=== PATIENT | male | born 1985 | race Caucasian/White ===

== ENCOUNTER 2017-04-29 16:43 | Emergency (ER) | payer SELFPAY ==
[~2017-04-29] VITALS: Ht 167.6 cm; Wt 77.1 kg
--- NOTE | 2017-04-29 17:22 | NUR ---
DR MORSE AT THE BEDSIDE FOR EVAL AND EXAM.
--- NOTE | 2017-04-29 18:21 | NUR ---
Patient discharged to home in stable conditon. Written and verbal after care instructions given. Patient verbalizes understanding of instructions. PT WALKED OUT OF ER W/ STEADY GAIT.
[2017-04-29 18:24] VITALS: BP 120/75
== END 2017-04-29 18:25 | disposition home or self-care (01) ==
LOC: ER 16:44
DX: S09.90XA Unspecified injury of head, initial encounter (principal); M54.40 Lumbago with sciatica, unspecified side; F17.200 Nicotine dependence, unspecified, uncomplicated; R51 Headache; W01.0XXA Fall on same level from slipping, tripping and stumbling without subsequent striking against object, initial encounter; Y93.89 Activity, other specified; Y99.8 Other external cause status; Y92.89 Other specified places as the place of occurrence of the external cause
CPT/HCPCS: 70450; 72100; A4663

== ENCOUNTER 2022-08-31 13:25 | Emergency (ER) | payer OTHER ==
[~2022-08-31] VITALS: Ht 167.6 cm; Wt 55.8 kg
--- NOTE | 2022-08-31 13:59 | NUR ---
[email or web address], medical screening exam in progress
--- NOTE | 2022-08-31 14:27 | NUR ---
Patient ambulated to ER bed 2A. Patient is still for x-rays. Nursing SBAR given to JOSELYN Friend.
--- NOTE | 2022-08-31 15:32 | NUR ---
Patient discharged to home in stable condition. Written and verbal after care instructions given. Patient verbalizes understanding of instructions. Stressed follow up or return to ER for worsening s/s.
[2022-08-31 15:33] VITALS: BP 124/77
== END 2022-08-31 15:34 | disposition home or self-care (01) ==
LOC: ER 13:25
DX: S33.5XXA Sprain of ligaments of lumbar spine, initial encounter (principal); S80.02XA Contusion of left knee, initial encounter; S80.01XA Contusion of right knee, initial encounter; V03.90XA Pedestrian on foot injured in collision with car, pick-up truck or van, unspecified whether traffic or nontraffic accident, initial encounter; Y92.481 Parking lot as the place of occurrence of the external cause; M24.521 Contracture, right elbow
CPT/HCPCS: 72110; 73080; A4663